=== PATIENT | female | born 1980 | race Caucasian/White ===

== ENCOUNTER 2020-11-20 08:36 | Day surgery (SDC) | payer OTHER, SELFPAY ==
[~2020-11-20] VITALS: Ht 177.8 cm; Wt 124.7 kg
[2020-11-20 08:58] LABS: HCG,QUAL RESULT NEGATIVE (NEGATIVE)
[2020-11-20] MEDS ORDERED: fentaNYL CITRATE/PF 100 MCG/2 ML AMP IVP ONE (09:45)
[2020-11-20] MEDS ORDERED: MIDAZOLAM HCL 5 MG/5 ML VIAL IVP ONE (09:45)
[2020-11-20] MEDS ORDERED: SEVOFLURANE 15 MIN GAS INH ONE (09:45)
[2020-11-20] MEDS ORDERED: LR 1,000 ML IV.SOLN IV ONE (09:45)
[2020-11-20] MEDS ORDERED: SILVER NITRATE APPLICATOR 1 STICK STICK..EA. TP ONE (09:45)
[2020-11-20] MEDS ORDERED: PROPOFOL 200MG/ 20ML VIAL (DIPRIVAN) IV ONE (09:45)
[2020-11-20] MEDS ORDERED: NS 1000 ML IV.SOLN IV ONE (09:45)
[2020-11-20] MEDS ORDERED: METOCLOPRAMIDE HCL 10 MG/2 ML VIAL IVP PRN (10:15)
[2020-11-20] MEDS ORDERED: ONDANSETRON HCL 4 MG/2 ML VIAL IVP PRN (10:15)
[2020-11-20] MEDS ORDERED: fentaNYL CITRATE/PF 100 MCG/2 ML AMP IVP PRN ×2 (10:15)
[2020-11-20] MEDS ORDERED: IBUPROFEN 800 MG TABLET PO PRN (11:15)
[2020-11-20] MEDS ORDERED: OXYCODONE/ACETAMINOPHEN 5-325 TABLET PO PRN ×2 (11:15)
[2020-11-20] MEDS ORDERED: ONDANSETRON HCL 4 MG/2 ML VIAL IM PRN (11:15)
[2020-11-20 13:33] VITALS: BP_SYST 127
== END 2020-11-20 13:30 | disposition home or self-care (01) ==
LOC: SDS 08:36 → SMU 08:37 → SDS 13:30
PROVIDERS: ATTEND Obstetrics & Gynecology
DX: N92.0 Excessive and frequent menstruation with regular cycle (principal); D25.9 Leiomyoma of uterus, unspecified; D50.9 Iron deficiency anemia, unspecified; Z79.899 Other long term (current) drug therapy; Z20.822 Contact with and (suspected) exposure to COVID-19
CPT/HCPCS: 36415; 58563; 84703; 86886; 86900; 86901; 88305; C1819; J2250; J2704; J3010; J7030; J7120; U0003

== ENCOUNTER 2021-07-01 18:03 | Inpatient (IN) | payer OTHER, SELFPAY ==
[~2021-07-01] VITALS: Ht 177.8 cm; Wt 117.9 kg
[2021-07-01 18:05] VITALS: BP_SYST 160
[2021-07-01] MEDS ORDERED: PIPERACILLIN/TAZO 3.375 GM in NS 50 ML IV ONE (18:45)
[2021-07-01] MEDS ORDERED: NACL 0.9% 1,000 ML IV ONE (18:45)
[2021-07-01] MEDS ORDERED: ONDANSETRON HCL 4 MG/2 ML VIAL IVP ONE (18:45)
[2021-07-01] MEDS ORDERED: MORPHINE 4 MG INJ. 4 MG/ML VIAL IVP ONE (18:45)
[2021-07-01] MEDS ORDERED: DIPHENHYDRAMINE INJ 50 MG/ML VIAL IVP ONE (18:45)
[2021-07-01] MEDS ORDERED: PIPERACILLIN/TAZOBACTAM 3.375 GM/VIAL (ZOSYN) IV ONE (19:06)
[2021-07-01 19:09] LABS: BILIRUBIN,URINE 1+ (NEGATIVE); BLOOD, URINE 2+ (NEGATIVE); CLARITY/URINE CLOUDY (CLEAR); COLOR,URINE YELLOW (YELLOW); GLUCOSE,URINE NEGATIVE (NEGATIVE); KETONES,URINE 1+ (NEGATIVE); LEUKOCYTE ESTERASE ,URINE TRACE (NEGATIVE); NITRITE, URINE NEGATIVE (NEGATIVE); PROTEIN URINE 2+ (NEGATIVE); UROBILINOGEN,URINE 0.2 (0.2-1.0)
[2021-07-01 19:12] LABS: CREATININE 1.08 mg/dL (0.55-1.30)
[2021-07-01 19:17] LABS: POTASSIUM 2.8 mmol/L (3.5-5.1)
[2021-07-01 19:23] LABS: TOTAL BILIRUBIN 0.7 mg/dL (0.0-1.0)
[2021-07-01 19:24] LABS: ALBUMIN 2.6 g/dL (3.4-4.8)
[2021-07-01 19:26] LABS: BASOPHILS % (AUTO) 0.3 % (0.0-2.0); EOSINOPHILS % (AUTO) 0.3 % (0.0-4.0); HEMATOCRIT 27.8 % (36-48); HEMOGLOBIN 8.5 g/dL (12.0-16.0); LYMPHOCYTES # (AUTO) 1.5 K/uL (1.0-5.5); LYMPHOCYTES % (AUTO) 9.1 % (20.5-51.5); MEAN CORPUSCULAR HEMOGLOBIN 18 pg (27-31); MEAN CORPUSCULAR HGB CONC 30 % (32-36); MEAN CORPUSCULAR VOLUME 60 fL (79.0-98.0); MONOCYTES # (AUTO) 1.4 K/uL (0.0-1.0); MONOCYTES % (AUTO) 8.7 % (1.7-9.3); NEUTROPHILS # (AUTO) 13.4 K/uL (1.8-7.7); NEUTROPHILS % (AUTO) 81.6 % (40.0-70.0); PLATELET COUNT (AUTO) 512 K/uL (130-430); RED BLOOD CELL COUNT(AUTO) 4.64 MIL/uL (4.2-6.2); RED CELL DISTRIBUTION WIDTH 18.5 % (9.0-15.0); WHITE BLOOD COUNT (AUTO) 16.4 K/uL (4.8-10.8)
[2021-07-01] MEDS ORDERED: KCL 20 mEq in 100 mL (PREMIX) 100 ML IV ONE (19:30)
[2021-07-01 19:44] LABS: BACTERIA,URINE MANY /HPF (None Seen); YEAST,URINE Few /HPF (None Seen)
[2021-07-01 19:45] LABS: HYALINE CASTS, URINE 0-10 /LPF (None Seen); MUCUS,URINE 2+ /LPF (None Seen)
[2021-07-01] MEDS ORDERED: PROPOFOL 200MG/ 20ML VIAL (DIPRIVAN) IV ONE (22:25)
[2021-07-01] MEDS ORDERED: fentaNYL CITRATE 250 MCG/5 ML AMP ONE (22:25)
[2021-07-01] MEDS ORDERED: NS IRRIG SOLN 1000 ML IR ONE (22:25)
[2021-07-01] MEDS ORDERED: MIDAZOLAM HCL 5 MG/ML VIAL (VERSED) IV ONE (22:25)
[2021-07-01] MEDS ORDERED: GLYCOPYRROLATE 0.2 MG/ML VIAL ONE (22:25)
[2021-07-01] MEDS ORDERED: BUPIVACAINE /EPINEPHRINE/PF 0.25% 30 ML VIAL INJ ONE (22:25)
[2021-07-01] MEDS ORDERED: NS 1000 ML IV.SOLN IV ONE (22:25)
[2021-07-01] MEDS ORDERED: ONDANSETRON HCL 4 MG/2 ML VIAL ONE (22:25)
[2021-07-01] MEDS ORDERED: SEVOFLURANE 15 MIN GAS INH ONE (22:25)
[2021-07-01] MEDS ORDERED: PHENYLEPHRINE HCL 10 MG/ML VIAL (NEOSYNEPHRINE) ONE (22:25)
[2021-07-01] MEDS ORDERED: METOCLOPRAMIDE HCL 10 MG/2 ML VIAL IVP PRN (23:00)
[2021-07-01] MEDS ORDERED: ONDANSETRON HCL 4 MG/2 ML VIAL IVP PRN (23:00)
[2021-07-01] MEDS ORDERED: fentaNYL CITRATE/PF 100 MCG/2 ML AMP IVP PRN (23:00)
[2021-07-01] MEDS ORDERED: NALOXONE HCL 0.4 MG/ML AMP (NARCAN) IVP PRN ×2 (23:45)
[2021-07-01] MEDS ORDERED: HYDROmorphone 1 MG/ML INJ. CARTRIDGE IM PRN (23:45)
[2021-07-01] MEDS ORDERED: ACETAMINOPHEN I.V. 1000 MG 100 ML IV ONE (23:54)
[2021-07-02] VITALS (8 sets, daily range): BP systolic 122–153
[2021-07-02] MEDS ORDERED: METOCLOPRAMIDE HCL 10 MG/2 ML VIAL IVP PRN
[2021-07-02] MEDS ORDERED: PANTOPRAZOLE SODIUM 40 MG/VIAL (PROTONIX) IVP ONE
[2021-07-02] MEDS ORDERED: ACETAMINOPHEN I.V. 1000 MG 100 ML IV ONE
[2021-07-02] MEDS ORDERED: ACETAMINOPHEN 650 MG SUPP.RECT RC PRN
[2021-07-02] MEDS ORDERED: KCL 40 mEq in 100 mL (PREMIX) 100 ML IV ONE
[2021-07-02] MEDS ORDERED: fentaNYL CITRATE/PF 100 MCG/2 ML AMP ONE (00:29)
[2021-07-02] MEDS: fentaNYL CITRATE/PF 100 MCG/2 ML AMP IVP PRN ×2 (00:30→00:35)
[2021-07-02] MEDS ORDERED: PIPERACILLIN/TAZOBACTAM 3.375 GM/VIAL (ZOSYN) IV ONE (02:14)
[2021-07-02] MEDS ORDERED: GENTAMICIN 120 mg/100 mL NS 100 ML IV ONE ×2 (02:15)
[2021-07-02] MEDS: LR 1,000 ML IV SCH ×3 (02:46→22:38)
[2021-07-02] MEDS ORDERED: PIPERACILLIN/TAZO 3.375/DEX-IS 50 ML IV SCH ×2 (03:00)
[2021-07-02] MEDS: HYDROcodone/ACETAMIN 5-325 MG TAB (NORCO/ VICODIN) PO PRN ×3 (03:49→22:37)
[2021-07-02 07:00] LABS: BASOPHILS % (AUTO) 0.3 % (0.0-2.0); EOSINOPHILS % (AUTO) 0.2 % (0.0-4.0); HEMATOCRIT 25.3 % (36-48); HEMOGLOBIN 7.6 g/dL (12.0-16.0); LYMPHOCYTES # (AUTO) 1.2 K/uL (1.0-5.5); LYMPHOCYTES % (AUTO) 10.9 % (20.5-51.5); MEAN CORPUSCULAR HEMOGLOBIN 18 pg (27-31); MEAN CORPUSCULAR HGB CONC 30 % (32-36); MEAN CORPUSCULAR VOLUME 61 fL (79.0-98.0); MONOCYTES # (AUTO) 1.3 K/uL (0.0-1.0); MONOCYTES % (AUTO) 11.3 % (1.7-9.3); NEUTROPHILS # (AUTO) 8.6 K/uL (1.8-7.7); NEUTROPHILS % (AUTO) 77.3 % (40.0-70.0); PLATELET COUNT (AUTO) 444 K/uL (130-430); RED BLOOD CELL COUNT(AUTO) 4.15 MIL/uL (4.2-6.2); WHITE BLOOD COUNT (AUTO) 11.1 K/uL (4.8-10.8)
[2021-07-02 07:01] LABS: TOTAL IRON BIND. CAPACITY 196 ug/dL (250-450)
[2021-07-02 07:15] LABS: ALBUMIN 2.1 g/dL (3.4-4.8); CALCIUM 7.4 mg/dL (8.4-11.0); CREATININE 1.04 mg/dL (0.55-1.30); POTASSIUM 3.7 mmol/L (3.5-5.1); TOTAL BILIRUBIN 0.7 mg/dL (0.0-1.0)
[2021-07-02 08:13] LABS: RED CELL DISTRIBUTION WIDTH 18.3 % (9.0-15.0)
[2021-07-02] MEDS: PANTOPRAZOLE SODIUM 40 MG/VIAL (PROTONIX) IVP SCH ×2 (09:47→20:52)
[2021-07-02] MEDS: LACTOBACILLUS RHAMNOSUS GG 1 CAP CAPSULE PO SCH ×2 (09:47→20:53)
[2021-07-02] MEDS: POTASSIUM CHLORIDE 20 MEQ TAB.PRT.SR PO SCH (09:48)
[2021-07-02] MEDS: PIPERACILLIN/TAZO 3.375/DEX-IS 50 ML IV SCH ×3 (09:49→22:22)
[2021-07-02] MEDS ORDERED: HYDROmorphone 1 MG/ML INJ. CARTRIDGE IVP PRN (13:00)
[2021-07-02] MEDS: ONDANSETRON HCL 4 MG/2 ML VIAL IVP PRN (18:20)
[2021-07-02] MEDS: FLUCONAZOLE 200 mg/ NS 100 ML IV SCH (20:25)
[2021-07-02] MEDS: SOD FERRIC GLUC COMPLEX/SUC 125 MG in NS 100 ML IV SCH (21:03)
[2021-07-03 01:24] VITALS: BP_SYST 139
[2021-07-03] MEDS: PIPERACILLIN/TAZO 3.375/DEX-IS 50 ML IV SCH ×4 (03:15→20:34)
[2021-07-03] MEDS: LR 1,000 ML IV SCH ×3 (03:18→15:45)
[2021-07-03 07:04] LABS: BASOPHILS % (AUTO) 0.3 % (0.0-2.0); EOSINOPHILS # (AUTO) 0.1 K/uL (0.0-0.4); EOSINOPHILS % (AUTO) 0.9 % (0.0-4.0); HEMATOCRIT 27.7 % (36-48); HEMOGLOBIN 8.2 g/dL (12.0-16.0); LYMPHOCYTES # (AUTO) 1.4 K/uL (1.0-5.5); MEAN CORPUSCULAR HEMOGLOBIN 18 pg (27-31); MEAN CORPUSCULAR HGB CONC 30 % (32-36); MEAN CORPUSCULAR VOLUME 61 fL (79.0-98.0); MONOCYTES # (AUTO) 1.3 K/uL (0.0-1.0); MONOCYTES % (AUTO) 11.5 % (1.7-9.3); NEUTROPHILS # (AUTO) 8.7 K/uL (1.8-7.7); NEUTROPHILS % (AUTO) 75.3 % (40.0-70.0); PLATELET COUNT (AUTO) 528 K/uL (130-430); RED BLOOD CELL COUNT(AUTO) 4.51 MIL/uL (4.2-6.2); RED CELL DISTRIBUTION WIDTH 18.7 % (9.0-15.0); RETICULOCYTE COUNT 0.7 % (0.5-1.5); WHITE BLOOD COUNT (AUTO) 11.5 K/uL (4.8-10.8)
[2021-07-03 07:55] LABS: CALCIUM 7.5 mg/dL (8.4-11.0); CREATININE 0.99 mg/dL (0.55-1.30); POTASSIUM 3.7 mmol/L (3.5-5.1)
[2021-07-03 08:06] LABS: FOLATE (FOLIC ACID) 5.7 ng/mL (>3.0)
[2021-07-03 08:09] VITALS: BP_SYST 141
[2021-07-03] MEDS: LACTOBACILLUS RHAMNOSUS GG 1 CAP CAPSULE PO SCH ×2 (09:50→20:33)
[2021-07-03] MEDS: PANTOPRAZOLE SODIUM 40 MG/VIAL (PROTONIX) IVP SCH ×2 (09:54→20:33)
[2021-07-03] MEDS: POTASSIUM CHLORIDE 20 MEQ TAB.PRT.SR PO SCH (09:54)
[2021-07-03] MEDS: ONDANSETRON HCL 4 MG/2 ML VIAL IVP PRN (15:04)
[2021-07-03 16:15] VITALS: BP_SYST 152
[2021-07-03] MEDS: FLUCONAZOLE 200 mg/ NS 100 ML IV SCH (18:56)
[2021-07-03] MEDS: SOD FERRIC GLUC COMPLEX/SUC 125 MG in NS 100 ML IV SCH (20:30)
[2021-07-03 22:11] VITALS: BP_SYST 140
[2021-07-04] MEDS: PIPERACILLIN/TAZO 3.375/DEX-IS 50 ML IV SCH ×4 (03:29→21:48)
[2021-07-04 05:14] VITALS: BP_SYST 140
[2021-07-04] MEDS: LR 1,000 ML IV SCH ×2 (05:18→16:16)
[2021-07-04 08:11] LABS: ALBUMIN 1.7 g/dL (3.4-4.8); BASOPHILS % (AUTO) 0.4 % (0.0-2.0); CALCIUM 7.6 mg/dL (8.4-11.0); CREATININE 0.72 mg/dL (0.55-1.30); EOSINOPHILS # (AUTO) 0.3 K/uL (0.0-0.4); EOSINOPHILS % (AUTO) 2.2 % (0.0-4.0); HEMATOCRIT 24.9 % (36-48); HEMOGLOBIN 7.4 g/dL (12.0-16.0); LYMPHOCYTES # (AUTO) 1.9 K/uL (1.0-5.5); LYMPHOCYTES % (AUTO) 15.9 % (20.5-51.5); MEAN CORPUSCULAR HEMOGLOBIN 18 pg (27-31); MEAN CORPUSCULAR HGB CONC 30 % (32-36); MEAN CORPUSCULAR VOLUME 62 fL (79.0-98.0); MONOCYTES # (AUTO) 1.2 K/uL (0.0-1.0); MONOCYTES % (AUTO) 10.6 % (1.7-9.3); NEUTROPHILS # (AUTO) 8.3 K/uL (1.8-7.7); NEUTROPHILS % (AUTO) 70.9 % (40.0-70.0); PLATELET COUNT (AUTO) 519 K/uL (130-430); POTASSIUM 3.9 mmol/L (3.5-5.1); RED BLOOD CELL COUNT(AUTO) 4.04 MIL/uL (4.2-6.2); RED CELL DISTRIBUTION WIDTH 18.4 % (9.0-15.0); TOTAL BILIRUBIN 0.5 mg/dL (0.0-1.0); WHITE BLOOD COUNT (AUTO) 11.7 K/uL (4.8-10.8)
[2021-07-04] MEDS: PANTOPRAZOLE SODIUM 40 MG/VIAL (PROTONIX) IVP SCH ×2 (08:58→21:48)
[2021-07-04] MEDS: LACTOBACILLUS RHAMNOSUS GG 1 CAP CAPSULE PO SCH ×2 (08:58→21:49)
[2021-07-04] MEDS: POTASSIUM CHLORIDE 20 MEQ TAB.PRT.SR PO SCH (08:58)
[2021-07-04 10:02] VITALS: BP_SYST 154
[2021-07-04 12:00] VITALS: BP_SYST 136
[2021-07-04] MEDS: ACETAMINOPHEN 325 MG TABLET PO PRN ×2 (12:18→18:52)
[2021-07-04] MEDS: ONDANSETRON HCL 4 MG/2 ML VIAL IVP PRN (13:35)
[2021-07-04 14:08] LABS: BASOPHILS # (AUTO) 0.1 K/uL (0.0-0.2); BASOPHILS % (AUTO) 0.9 % (0.0-2.0); EOSINOPHILS # (AUTO) 0.2 K/uL (0.0-0.4); EOSINOPHILS % (AUTO) 1.7 % (0.0-4.0); HEMATOCRIT 25.4 % (36-48); HEMOGLOBIN 7.7 g/dL (12.0-16.0); LYMPHOCYTES # (AUTO) 1.7 K/uL (1.0-5.5); LYMPHOCYTES % (AUTO) 14.8 % (20.5-51.5); MEAN CORPUSCULAR HEMOGLOBIN 18 pg (27-31); MEAN CORPUSCULAR HGB CONC 30 % (32-36); MEAN CORPUSCULAR VOLUME 60 fL (79.0-98.0); MONOCYTES # (AUTO) 1.2 K/uL (0.0-1.0); MONOCYTES % (AUTO) 9.9 % (1.7-9.3); NEUTROPHILS # (AUTO) 8.5 K/uL (1.8-7.7); NEUTROPHILS % (AUTO) 72.7 % (40.0-70.0); PLATELET COUNT (AUTO) 573 K/uL (130-430); RED BLOOD CELL COUNT(AUTO) 4.21 MIL/uL (4.2-6.2); RED CELL DISTRIBUTION WIDTH 18.1 % (9.0-15.0); WHITE BLOOD COUNT (AUTO) 11.7 K/uL (4.8-10.8)
[2021-07-04 14:16] LABS: CALCIUM 7.8 mg/dL (8.4-11.0); CREATININE 0.7 mg/dL (0.55-1.30); POTASSIUM 3.6 mmol/L (3.5-5.1)
[2021-07-04 16:00] VITALS: BP_SYST 144
[2021-07-04] MEDS: FLUCONAZOLE 200 mg/ NS 100 ML IV SCH (17:31)
[2021-07-04] MEDS ORDERED: EPOETIN ALFA-EPBX 4,000 UNITS/ML VIAL SUBCUT ONE (18:00)
[2021-07-04] MEDS: SOD FERRIC GLUC COMPLEX/SUC 125 MG in NS 100 ML IV SCH (18:43)
[2021-07-04] MEDS: MULTIVITS,CA,MINERALS/IRON/FA 1 TABLET PO SCH (21:49)
[2021-07-04 23:12] VITALS: BP_SYST 153
[2021-07-05] MEDS: PIPERACILLIN/TAZO 3.375/DEX-IS 50 ML IV SCH ×4 (03:01→21:48)
[2021-07-05] MEDS: LR 1,000 ML IV SCH (05:52)
[2021-07-05 06:33] LABS: CALCIUM 7.6 mg/dL (8.4-11.0); CREATININE 0.71 mg/dL (0.55-1.30); POTASSIUM 3.7 mmol/L (3.5-5.1)
[2021-07-05 06:40] VITALS: BP_SYST 147
[2021-07-05 08:00] VITALS: BP_SYST 158
[2021-07-05 08:54] LABS: BASOPHILS # (AUTO) 0.1 K/uL (0.0-0.2); BASOPHILS % (AUTO) 0.6 % (0.0-2.0); EOSINOPHILS # (AUTO) 0.4 K/uL (0.0-0.4); EOSINOPHILS % (AUTO) 3.7 % (0.0-4.0); HEMATOCRIT 22.7 % (36-48); LYMPHOCYTES # (AUTO) 1.8 K/uL (1.0-5.5); LYMPHOCYTES % (AUTO) 15.5 % (20.5-51.5); MEAN CORPUSCULAR HEMOGLOBIN 18 pg (27-31); MEAN CORPUSCULAR HGB CONC 30 % (32-36); MEAN CORPUSCULAR VOLUME 61 fL (79.0-98.0); MONOCYTES # (AUTO) 1.3 K/uL (0.0-1.0); MONOCYTES % (AUTO) 11.8 % (1.7-9.3); NEUTROPHILS # (AUTO) 7.8 K/uL (1.8-7.7); NEUTROPHILS % (AUTO) 68.4 % (40.0-70.0); PLATELET COUNT (AUTO) 534 K/uL (130-430); RED BLOOD CELL COUNT(AUTO) 3.75 MIL/uL (4.2-6.2); RED CELL DISTRIBUTION WIDTH 18.3 % (9.0-15.0); WHITE BLOOD COUNT (AUTO) 11.4 K/uL (4.8-10.8)
[2021-07-05 09:25] LABS: HEMOGLOBIN 6.9 g/dL (12.0-16.0)
[2021-07-05] MEDS: MULTIVITS,CA,MINERALS/IRON/FA 1 TABLET PO SCH ×2 (09:37→21:48)
[2021-07-05] MEDS: POTASSIUM CHLORIDE 20 MEQ TAB.PRT.SR PO SCH (09:37)
[2021-07-05] MEDS: LACTOBACILLUS RHAMNOSUS GG 1 CAP CAPSULE PO SCH ×2 (09:37→21:48)
[2021-07-05] MEDS: PANTOPRAZOLE SODIUM 40 MG/VIAL (PROTONIX) IVP SCH ×2 (09:37→21:48)
[2021-07-05 10:11] LABS: BASOPHILS # (AUTO) 0.1 K/uL (0.0-0.2); BASOPHILS % (AUTO) 0.6 % (0.0-2.0); EOSINOPHILS # (AUTO) 0.3 K/uL (0.0-0.4); EOSINOPHILS % (AUTO) 2.6 % (0.0-4.0); HEMATOCRIT 23.8 % (36-48); HEMOGLOBIN 7.2 g/dL (12.0-16.0); LYMPHOCYTES # (AUTO) 1.6 K/uL (1.0-5.5); LYMPHOCYTES % (AUTO) 14.3 % (20.5-51.5); MEAN CORPUSCULAR HEMOGLOBIN 18 pg (27-31); MEAN CORPUSCULAR HGB CONC 30 % (32-36); MEAN CORPUSCULAR VOLUME 61 fL (79.0-98.0); MONOCYTES # (AUTO) 1.1 K/uL (0.0-1.0); MONOCYTES % (AUTO) 9.9 % (1.7-9.3); NEUTROPHILS # (AUTO) 8.2 K/uL (1.8-7.7); NEUTROPHILS % (AUTO) 72.6 % (40.0-70.0); PLATELET COUNT (AUTO) 577 K/uL (130-430); RED CELL DISTRIBUTION WIDTH 18.4 % (9.0-15.0); WHITE BLOOD COUNT (AUTO) 11.3 K/uL (4.8-10.8)
[2021-07-05 12:00] VITALS: BP_SYST 162
[2021-07-05] MEDS ORDERED: EPOETIN ALFA-EPBX 4,000 UNITS/ML VIAL SUBCUT ONE (12:00)
[2021-07-05] MEDS: FLUCONAZOLE 200 mg/ NS 100 ML IV SCH (18:10)
[2021-07-05] MEDS: SOD FERRIC GLUC COMPLEX/SUC 125 MG in NS 100 ML IV SCH (20:26)
[2021-07-06 00:48] VITALS: BP_SYST 149
[2021-07-06] MEDS: PIPERACILLIN/TAZO 3.375/DEX-IS 50 ML IV SCH ×3 (03:12→16:10)
[2021-07-06 08:21] LABS: BASOPHILS # (AUTO) 0.1 K/uL (0.0-0.2); BASOPHILS % (AUTO) 0.5 % (0.0-2.0); EOSINOPHILS # (AUTO) 0.4 K/uL (0.0-0.4); EOSINOPHILS % (AUTO) 3.6 % (0.0-4.0); HEMATOCRIT 23.4 % (36-48); LYMPHOCYTES # (AUTO) 1.8 K/uL (1.0-5.5); LYMPHOCYTES % (AUTO) 14.9 % (20.5-51.5); MEAN CORPUSCULAR HEMOGLOBIN 18 pg (27-31); MEAN CORPUSCULAR HGB CONC 30 % (32-36); MEAN CORPUSCULAR VOLUME 61 fL (79.0-98.0); MONOCYTES # (AUTO) 1.3 K/uL (0.0-1.0); MONOCYTES % (AUTO) 11.1 % (1.7-9.3); NEUTROPHILS # (AUTO) 8.3 K/uL (1.8-7.7); NEUTROPHILS % (AUTO) 69.9 % (40.0-70.0); PLATELET COUNT (AUTO) 614 K/uL (130-430); RED BLOOD CELL COUNT(AUTO) 3.82 MIL/uL (4.2-6.2)
[2021-07-06 08:31] LABS: ALBUMIN 1.9 g/dL (3.4-4.8); CALCIUM 7.8 mg/dL (8.4-11.0); CREATININE 0.76 mg/dL (0.55-1.30); POTASSIUM 3.5 mmol/L (3.5-5.1); TOTAL BILIRUBIN 0.4 mg/dL (0.0-1.0)
[2021-07-06] MEDS: PANTOPRAZOLE SODIUM 40 MG/VIAL (PROTONIX) IVP SCH (09:23)
[2021-07-06] MEDS: LACTOBACILLUS RHAMNOSUS GG 1 CAP CAPSULE PO SCH (09:23)
[2021-07-06] MEDS: MULTIVITS,CA,MINERALS/IRON/FA 1 TABLET PO SCH (09:24)
[2021-07-06] MEDS: POTASSIUM CHLORIDE 20 MEQ TAB.PRT.SR PO SCH (09:24)
[2021-07-06] MEDS ORDERED: EPOETIN ALFA-EPBX 4,000 UNITS/ML VIAL SUBCUT ONE (11:00)
[2021-07-06] MEDS ORDERED: LEVO500T90 PO (13:52)
[2021-07-06] MEDS ORDERED: METR-154 PO (13:54)
[2021-07-06] MEDS ORDERED: LACT1CAP69 PO (14:27)
[2021-07-06] MEDS ORDERED: MULT-1117 PO (14:28)
[2021-07-06] MEDS ORDERED: FER300L PO (14:29)
[2021-07-06] MEDS ORDERED: VITD2000 PO (14:30)
[2021-07-06 16:00] VITALS: BP_SYST 142
[2021-07-06] MEDS: FLUCONAZOLE 200 mg/ NS 100 ML IV SCH (16:13)
== END 2021-07-06 18:12 | disposition home health service (06) | DRG 853 ==
LOC: SED 18:03 → SDS 22:14 → SMU 22:15 → STU 07-02 01:45 → SMU 07-04 17:17
PROVIDERS: ADMIT Surgery; ATTEND Internal Medicine
PROC: 0WJG4ZZ Inspection of Peritoneal Cavity, Percutaneous Endoscopic Approach (ICD-10-PCS; 2021-07-01)
PROC: 30233N1 Transfusion of Nonautologous Red Blood Cells into Peripheral Vein, Percutaneous Approach (ICD-10-PCS; principal; 2021-07-06)
DX: A41.9 Sepsis, unspecified organism (principal); K35.33 Acute appendicitis with perforation, localized peritonitis, and gangrene, with abscess; E44.0 Moderate protein-calorie malnutrition; N39.0 Urinary tract infection, site not specified; E87.6 Hypokalemia; D25.9 Leiomyoma of uterus, unspecified; D50.0 Iron deficiency anemia secondary to blood loss (chronic); E66.01 Morbid (severe) obesity due to excess calories; Z20.822 Contact with and (suspected) exposure to COVID-19; Z68.37 Body mass index [BMI] 37.0-37.9, adult
CPT/HCPCS: 36415; 76376; 80048; 80053; 81000; 82607; 82746; 83540; 83550; 83605; 83735; 85025; 85044; 86886; 86900; 86901; 86920; 87040; 87081; 87086; 93005; 94010; 94760; 96365; 96375; 99285; C1727; C9113; G0378; J0131; J1170; J1200; J1450; J1580; J2250; J2270; J2370; J2405; J2543; J2704; J2916; J3010; J3480; J3490; J7030; P9021; Q5106

== ENCOUNTER 2021-07-17 18:18 | Inpatient (IN) | payer OTHER, SELFPAY ==
[~2021-07-17] VITALS: Ht 177.8 cm; Wt 113.4 kg
[~2021-07-17 18:18] MED LIST: FER300L PO; LACT1CAP69 PO; LEVO500T90 PO; METR-154 PO; MULT-1117 PO; VITD2000 PO
[2021-07-17 18:59] VITALS: BP_SYST 126
[2021-07-17 20:00] LABS: BILIRUBIN,URINE NEGATIVE (NEGATIVE); BLOOD, URINE 1+ (NEGATIVE); CLARITY/URINE CLEAR (CLEAR); COLOR,URINE YELLOW (YELLOW); GLUCOSE,URINE NEGATIVE (NEGATIVE); KETONES,URINE NEGATIVE (NEGATIVE); LEUKOCYTE ESTERASE ,URINE NEGATIVE (NEGATIVE); NITRITE, URINE NEGATIVE (NEGATIVE); PH,URINE 5.5 (5.0-8.0); PROTEIN URINE NEGATIVE (NEGATIVE); UROBILINOGEN,URINE 0.2 (0.2-1.0)
[2021-07-17 20:15] LABS: BACTERIA,URINE FEW /HPF (None Seen); MUCUS,URINE 1+ /LPF (None Seen); RBC,URINE 0-3 /HPF (0-3); WBC,URINE 0-3 /HPF (0-3)
[2021-07-17 20:42] LABS: BASOPHILS # (AUTO) 0.1 K/uL (0.0-0.2); EOSINOPHILS # (AUTO) 0.1 K/uL (0.0-0.4); LYMPHOCYTES % (AUTO) 16.5 % (20.5-51.5); MONOCYTES # (AUTO) 1.2 K/uL (0.0-1.0)
[2021-07-17] MEDS ORDERED: metroNIDAZOLE 500 MG TABLET PO ONE (20:45)
[2021-07-17] MEDS ORDERED: NS 1000 ML IV.SOLN IV ONE (20:45)
[2021-07-17] MEDS ORDERED: CEFEPIME 2 GM in D5W 100 ML IV ONE (20:45)
[2021-07-17 20:53] LABS: MEAN CORPUSCULAR HGB CONC 32 % (32-36)
[2021-07-17 21:00] LABS: CALCIUM 9.7 mg/dL (8.4-11.0); CREATININE 0.95 mg/dL (0.55-1.30); POTASSIUM 3.6 mmol/L (3.5-5.1)
[2021-07-17] MEDS ORDERED: CEFEPIME 1 GM/VIAL (MAXIPIME) ONE (21:01)
[2021-07-17 21:06] LABS: ALBUMIN 2.3 g/dL (3.4-4.8)
[2021-07-17 21:10] LABS: HEMATOCRIT 31.3 % (36-48); MEAN CORPUSCULAR HEMOGLOBIN 21 pg (27-31); MEAN CORPUSCULAR VOLUME 64 fL (79.0-98.0); RED BLOOD CELL COUNT(AUTO) 4.86 MIL/uL (4.2-6.2); RED CELL DISTRIBUTION WIDTH 23.7 % (9.0-15.0); WHITE BLOOD COUNT (AUTO) 10.5 K/uL (4.8-10.8)
[2021-07-17 21:11] LABS: BASOPHILS % (AUTO) 1.1 % (0.0-2.0); EOSINOPHILS % (AUTO) 0.6 % (0.0-4.0); LYMPHOCYTES # (AUTO) 1.7 K/uL (1.0-5.5); MONOCYTES % (AUTO) 11.2 % (1.7-9.3); NEUTROPHILS # (AUTO) 7.4 K/uL (1.8-7.7); NEUTROPHILS % (AUTO) 70.6 % (40.0-70.0); PLATELET COUNT (AUTO) 654 K/uL (130-430)
[2021-07-17] MEDS ORDERED: metroNIDAZOLE 500 mg/NS 100 ML IV SCH (22:00)
[2021-07-17] MEDS ORDERED: D5/0.45 NS 1,000 ML IV SCH (22:00)
[2021-07-17 22:32] LABS: INR 1.2 (0.8-1.2); PROTHROMBIN TIME 12.3 SECS (9.5-12.5)
[2021-07-18] VITALS (7 sets, daily range): BP systolic 138–160
[2021-07-18] MEDS: metroNIDAZOLE 500 mg/NS 100 ML IV SCH ×4 (00:10→21:34)
[2021-07-18] MEDS: D5/0.45 NS 1,000 ML IV SCH ×2 (01:03→21:34)
[2021-07-18] MEDS ORDERED: metroNIDAZOLE 500 mg/NS 100 ML IV ONE (05:56)
[2021-07-18 07:12] LABS: BASOPHILS # (AUTO) 0.1 K/uL (0.0-0.2); BASOPHILS % (AUTO) 0.6 % (0.0-2.0); EOSINOPHILS # (AUTO) 0.1 K/uL (0.0-0.4); HEMATOCRIT 31.7 % (36-48); HEMOGLOBIN 9.7 g/dL (12.0-16.0); LYMPHOCYTES # (AUTO) 1.5 K/uL (1.0-5.5); LYMPHOCYTES % (AUTO) 17.7 % (20.5-51.5); MEAN CORPUSCULAR HEMOGLOBIN 20 pg (27-31); MEAN CORPUSCULAR HGB CONC 31 % (32-36); MEAN CORPUSCULAR VOLUME 65 fL (79.0-98.0); MONOCYTES # (AUTO) 1.2 K/uL (0.0-1.0); MONOCYTES % (AUTO) 14.4 % (1.7-9.3); NEUTROPHILS # (AUTO) 5.7 K/uL (1.8-7.7); NEUTROPHILS % (AUTO) 66.3 % (40.0-70.0); PLATELET COUNT (AUTO) 605 K/uL (130-430); RED BLOOD CELL COUNT(AUTO) 4.88 MIL/uL (4.2-6.2); RED CELL DISTRIBUTION WIDTH 24.8 % (9.0-15.0); WHITE BLOOD COUNT (AUTO) 8.6 K/uL (4.8-10.8)
[2021-07-18 09:00] LABS: ALBUMIN 2.2 g/dL (3.4-4.8); CALCIUM 8.4 mg/dL (8.4-11.0); CREATININE 0.88 mg/dL (0.55-1.30); POTASSIUM 3.6 mmol/L (3.5-5.1); TOTAL BILIRUBIN 0.7 mg/dL (0.0-1.0)
[2021-07-18] MEDS ORDERED: CEFEPIME 1 GM in D5W 50 ML IV SCH ×2 (09:00)
[2021-07-18] MEDS: PIPERACILLIN/TAZO 4.5GM/DEX-IS 100 ML IV SCH ×2 (13:54→21:35)
[2021-07-19 00:30] VITALS: BP_SYST 148
[2021-07-19] MEDS: metroNIDAZOLE 500 mg/NS 100 ML IV SCH ×3 (05:16→22:26)
[2021-07-19] MEDS: PIPERACILLIN/TAZO 4.5GM/DEX-IS 100 ML IV SCH ×3 (05:52→21:17)
[2021-07-19 08:00] VITALS: BP_SYST 134
[2021-07-19 09:24] LABS: BASOPHILS # (AUTO) 0.1 K/uL (0.0-0.2); BASOPHILS % (AUTO) 0.9 % (0.0-2.0); EOSINOPHILS # (AUTO) 0.1 K/uL (0.0-0.4); HEMATOCRIT 29.4 % (36-48); LYMPHOCYTES # (AUTO) 1.3 K/uL (1.0-5.5); LYMPHOCYTES % (AUTO) 13.9 % (20.5-51.5); MEAN CORPUSCULAR HEMOGLOBIN 20 pg (27-31); MEAN CORPUSCULAR HGB CONC 31 % (32-36); MEAN CORPUSCULAR VOLUME 65 fL (79.0-98.0); MONOCYTES % (AUTO) 10.5 % (1.7-9.3); PLATELET COUNT (AUTO) 548 K/uL (130-430); RED BLOOD CELL COUNT(AUTO) 4.56 MIL/uL (4.2-6.2); RED CELL DISTRIBUTION WIDTH 24.5 % (9.0-15.0); WHITE BLOOD COUNT (AUTO) 9.5 K/uL (4.8-10.8)
[2021-07-19 10:58] LABS: NEUTROPHILS % (AUTO) 73.7 % (40.0-70.0)
[2021-07-19 12:15] VITALS: BP_SYST 128
[2021-07-19 13:52] LABS: INR 1.4 (0.8-1.2); PROTHROMBIN TIME 13.8 SECS (9.5-12.5)
[2021-07-19 16:45] VITALS: BP_SYST 124
[2021-07-19 16:50] LABS: INR 1.3 (0.8-1.2); PROTHROMBIN TIME 12.9 SECS (9.5-12.5)
[2021-07-19] MEDS: D5/0.45 NS 1,000 ML IV SCH (17:26)
[2021-07-19 18:35] VITALS: BP_SYST 128
[2021-07-19] MEDS ORDERED: PIPE3.379 IV (18:52)
[2021-07-20 00:28] VITALS: BP_SYST 159
[2021-07-20 02:12] VITALS: BP_SYST 159
[2021-07-20] MEDS: PIPERACILLIN/TAZO 4.5GM/DEX-IS 100 ML IV SCH ×3 (05:26→20:20)
[2021-07-20] MEDS: metroNIDAZOLE 500 mg/NS 100 ML IV SCH ×3 (06:44→20:17)
[2021-07-20 07:28] LABS: BASOPHILS # (AUTO) 0.1 K/uL (0.0-0.2); BASOPHILS % (AUTO) 0.8 % (0.0-2.0); EOSINOPHILS # (AUTO) 0.2 K/uL (0.0-0.4); EOSINOPHILS % (AUTO) 3.3 % (0.0-4.0); HEMATOCRIT 28.8 % (36-48); LYMPHOCYTES # (AUTO) 1.5 K/uL (1.0-5.5); LYMPHOCYTES % (AUTO) 22.7 % (20.5-51.5); MEAN CORPUSCULAR HEMOGLOBIN 20 pg (27-31); MEAN CORPUSCULAR HGB CONC 31 % (32-36); MEAN CORPUSCULAR VOLUME 65 fL (79.0-98.0); MONOCYTES # (AUTO) 0.7 K/uL (0.0-1.0); MONOCYTES % (AUTO) 10.7 % (1.7-9.3); NEUTROPHILS # (AUTO) 4.1 K/uL (1.8-7.7); NEUTROPHILS % (AUTO) 62.5 % (40.0-70.0); PLATELET COUNT (AUTO) 505 K/uL (130-430); RED BLOOD CELL COUNT(AUTO) 4.46 MIL/uL (4.2-6.2); RED CELL DISTRIBUTION WIDTH 24.2 % (9.0-15.0); WHITE BLOOD COUNT (AUTO) 6.6 K/uL (4.8-10.8)
[2021-07-20 08:00] VITALS: BP_SYST 137
[2021-07-20 09:28] LABS: CALCIUM 8.6 mg/dL (8.4-11.0); CREATININE 0.58 mg/dL (0.55-1.30); POTASSIUM 3.2 mmol/L (3.5-5.1)
[2021-07-20] MEDS: D5/0.45 NS 1,000 ML IV SCH (10:15)
[2021-07-20 12:00] VITALS: BP_SYST 148
[2021-07-20 16:00] VITALS: BP_SYST 147
[2021-07-20 22:24] VITALS: BP_SYST 155
== END 2021-07-20 23:12 | disposition home health service (06) | DRG 862 ==
LOC: SED 18:18 → SMU 22:02
PROVIDERS: ADMIT Internal Medicine; ATTEND Internal Medicine
DX: T81.40XA Infection following a procedure, unspecified, initial encounter (principal); A41.9 Sepsis, unspecified organism; N39.0 Urinary tract infection, site not specified; E66.01 Morbid (severe) obesity due to excess calories; K80.20 Calculus of gallbladder without cholecystitis without obstruction; Y83.8 Other surgical procedures as the cause of abnormal reaction of the patient, or of later complication, without mention of misadventure at the time of the procedure; L73.2 Hidradenitis suppurativa; Z20.822 Contact with and (suspected) exposure to COVID-19; Z90.49 Acquired absence of other specified parts of digestive tract; Z79.2 Long term (current) use of antibiotics; Z79.899 Other long term (current) drug therapy; Z68.35 Body mass index [BMI] 35.0-35.9, adult; Y92.89 Other specified places as the place of occurrence of the external cause
CPT/HCPCS: 36415; 71045; 76376; 80048; 80053; 81000; 83605; 84484; 85025; 85610-TC; 85730-TC; 87040; 87081; 87086; 93005; 94010; 94760; 96374; 99285; J0692; J2543; J3490; J7060

== ENCOUNTER 2021-08-08 11:36 | Inpatient (IN) | payer OTHER, SELFPAY ==
[~2021-08-08] VITALS: Ht 177.8 cm; Wt 106.6 kg
[~2021-08-08 11:36] MED LIST changes: -LEVO500T90 PO; -METR-154 PO; +PIPE3.379 IV
[2021-08-08 11:45] VITALS: BP_SYST 140
[2021-08-08] MEDS ORDERED: NS 1000 ML IV.SOLN IV ONE (12:00)
[2021-08-08] MEDS ORDERED: KETOROLAC TROMETHAMINE 30 MG VIAL IVP ONE (12:00)
[2021-08-08] MEDS ORDERED: CEFEPIME 2 GM in D5W 100 ML IV ONE (12:30)
[2021-08-08] MEDS ORDERED: metroNIDAZOLE 500 mg/NS 100 ML IV ONE (12:30)
[2021-08-08] MEDS ORDERED: LOSA25TA3 PO (12:48)
[2021-08-08 13:11] LABS: BASOPHILS # (AUTO) 0.1 K/uL (0.0-0.2); BASOPHILS % (AUTO) 0.7 % (0.0-2.0); HEMATOCRIT 33.7 % (36-48); HEMOGLOBIN 10.6 g/dL (12.0-16.0); LYMPHOCYTES # (AUTO) 1.3 K/uL (1.0-5.5); LYMPHOCYTES % (AUTO) 9.3 % (20.5-51.5); MEAN CORPUSCULAR HEMOGLOBIN 22 pg (27-31); MEAN CORPUSCULAR HGB CONC 31 % (32-36); MEAN CORPUSCULAR VOLUME 69 fL (79.0-98.0); MONOCYTES # (AUTO) 1.1 K/uL (0.0-1.0); MONOCYTES % (AUTO) 7.9 % (1.7-9.3); NEUTROPHILS # (AUTO) 11.2 K/uL (1.8-7.7); NEUTROPHILS % (AUTO) 82.1 % (40.0-70.0); PLATELET COUNT (AUTO) 462 K/uL (130-430); RED BLOOD CELL COUNT(AUTO) 4.86 MIL/uL (4.2-6.2); RED CELL DISTRIBUTION WIDTH 28.8 % (9.0-15.0); WHITE BLOOD COUNT (AUTO) 13.6 K/uL (4.8-10.8)
[2021-08-08] MEDS ORDERED: DIATR MEGLU/DIATRIZ SOD 30 ML SOLUTION PO ONE (13:16)
[2021-08-08 13:30] LABS: ANION GAP 12 (5-15); CALCIUM 9.1 mg/dL (8.4-11.0); CHLORIDE 96 mmol/L (98-107); CREATININE 0.92 mg/dL (0.55-1.30); GLUCOSE 156 mg/dL (70-99); POTASSIUM 3.1 mmol/L (3.5-5.1); SODIUM SERUM 135 mmol/L (136-145); UREA NITROGEN, BLOOD 14 mg/dL (8-21)
[2021-08-08 13:33] LABS: PROTHROMBIN TIME 10.9 SECS (9.5-12.5)
[2021-08-08 13:35] LABS: GFR AFRICAN AMERICAN 86 mL/min (>90)
[2021-08-08 13:39] LABS: ALANINE AMINOTRANSFERASE 22 U/L (12-78); ALBUMIN 2.6 g/dL (3.4-4.8); ASPARTATE AMINOTRANSFERASE 37 U/L (10-37); TOTAL BILIRUBIN 0.7 mg/dL (0.0-1.0)
[2021-08-08] MEDS ORDERED: CEFEPIME 1 GM/VIAL (MAXIPIME) ONE (14:00)
[2021-08-08 14:03] LABS: ERYTHROCYTE SEDIMENTATION RATE 59 MM/HR (0-20)
[2021-08-08 14:15] LABS: C-REACTIVE PROTEIN QUANT 27.8 mg/dL (0-0.5)
[2021-08-08 17:36] VITALS: BP_SYST 163
[2021-08-08] MEDS: D5LR 1,000 ML IV SCH (17:45)
[2021-08-08] MEDS ORDERED: ONDANSETRON HCL 4 MG/2 ML VIAL IVP PRN ×2 (17:45→18:00)
[2021-08-08] MEDS ORDERED: POTASSIUM CHLORIDE 40 MEQ, LIDOCAINE JECT 2% PF 100 MG 50 MG in NS 250 ML IV ONE (17:45)
[2021-08-08] MEDS ORDERED: NACL 0.9% 1,000 ML IV ONE (18:00)
[2021-08-08] MEDS ORDERED: KETOROLAC TROMETHAMINE 15 MG VIAL IVP PRN (18:00)
[2021-08-08] MEDS ORDERED: cloNIDine HCL 0.1 MG TABLET PO PRN (18:00)
[2021-08-08] MEDS ORDERED: MORPHINE 4 MG INJ. 4 MG/ML VIAL IVP PRN (18:00)
[2021-08-08] MEDS ORDERED: FLUCONAZOLE 200 mg/ NS 100 ML IV SCH (18:45)
[2021-08-08] MEDS ORDERED: LOSARTAN POTASSIUM 25 MG TABLET PO ONE (20:15)
[2021-08-08] MEDS: ACETAMINOPHEN 325 MG TABLET PO PRN (20:28)
[2021-08-08] MEDS ORDERED: CEFEPIME 0.5 GM in D5W 50 ML IV SCH (21:00)
[2021-08-08] MEDS ORDERED: CEFEPIME 1 GM in D5W 50 ML IV SCH (21:00)
[2021-08-08] MEDS: metroNIDAZOLE 500 mg/NS 100 ML IV SCH (21:11)
[2021-08-08] MEDS: MEROPENEM 1 GM in NS 100 ML IV SCH (21:11)
[2021-08-08 21:54] VITALS: BP_SYST 134
[2021-08-08 22:35] VITALS: BP_SYST 134
[2021-08-09 01:22] VITALS: BP_SYST 132
[2021-08-09] MEDS: D5LR 1,000 ML IV SCH ×2 (03:08→11:30)
[2021-08-09] MEDS: MEROPENEM 1 GM in NS 100 ML IV SCH (05:23)
[2021-08-09] MEDS: metroNIDAZOLE 500 mg/NS 100 ML IV SCH ×2 (05:23→13:40)
[2021-08-09 06:54] LABS: ALBUMIN 1.9 g/dL (3.4-4.8); CALCIUM 8.5 mg/dL (8.4-11.0); CREATININE 0.68 mg/dL (0.55-1.30); POTASSIUM 3.8 mmol/L (3.5-5.1); TOTAL BILIRUBIN 0.3 mg/dL (0.0-1.0)
[2021-08-09 07:05] LABS: BASOPHILS % (AUTO) 0.3 % (0.0-2.0); EOSINOPHILS % (AUTO) 0.4 % (0.0-4.0); LYMPHOCYTES # (AUTO) 1.1 K/uL (1.0-5.5); MEAN CORPUSCULAR HEMOGLOBIN 22 pg (27-31); MEAN CORPUSCULAR HGB CONC 31 % (32-36); MEAN CORPUSCULAR VOLUME 71 fL (79.0-98.0); MONOCYTES # (AUTO) 1.2 K/uL (0.0-1.0); MONOCYTES % (AUTO) 10.4 % (1.7-9.3); NEUTROPHILS # (AUTO) 8.9 K/uL (1.8-7.7); NEUTROPHILS % (AUTO) 78.9 % (40.0-70.0); PLATELET COUNT (AUTO) 361 K/uL (130-430); RED BLOOD CELL COUNT(AUTO) 4.11 MIL/uL (4.2-6.2); RED CELL DISTRIBUTION WIDTH 28.4 % (9.0-15.0); WHITE BLOOD COUNT (AUTO) 11.2 K/uL (4.8-10.8)
[2021-08-09 08:00] VITALS: BP_SYST 140
[2021-08-09] MEDS ORDERED: MULTIVITAMINS TAB 1 TABLET PO SCH (09:00)
[2021-08-09] MEDS ORDERED: LACTOBACILLUS RHAMNOSUS GG 1 CAP CAPSULE PO SCH (09:00)
[2021-08-09] MEDS ORDERED: LOSARTAN POTASSIUM 25 MG TABLET PO SCH (09:00)
[2021-08-09] MEDS ORDERED: FERROUS SULFATE 300 MG/5 ML UDC PO SCH (09:00)
[2021-08-09] MEDS ORDERED: CHOLECALCIFEROL (VITAMIN D3) 2,000 UNIT TABLET PO SCH (09:00)
[2021-08-09 12:00] VITALS: BP_SYST 140
[2021-08-09] MEDS: ACETAMINOPHEN 325 MG TABLET PO PRN (12:46)
[2021-08-09 14:05] VITALS: BP_SYST 140
[2021-08-09 14:10] VITALS: BP_SYST 140
== END 2021-08-09 15:30 | disposition short-term general hospital (02) | DRG 871 ==
LOC: SED 11:36 → STU 14:15
PROVIDERS: ADMIT Internal Medicine; ATTEND Internal Medicine
DX: A41.9 Sepsis, unspecified organism (principal); K35.33 Acute appendicitis with perforation, localized peritonitis, and gangrene, with abscess; E44.0 Moderate protein-calorie malnutrition; D84.821 Immunodeficiency due to drugs; E66.01 Morbid (severe) obesity due to excess calories; E87.6 Hypokalemia; D25.9 Leiomyoma of uterus, unspecified; D50.9 Iron deficiency anemia, unspecified; R61 Generalized hyperhidrosis; Z20.822 Contact with and (suspected) exposure to COVID-19; Z79.899 Other long term (current) drug therapy; Z68.33 Body mass index [BMI] 33.0-33.9, adult
CPT/HCPCS: 36415; 71045; 76376; 80053; 83605; 84484; 85025; 85610-TC; 85651-TC; 86140; 87040; 87081; 93005; 96361; 96365; 96375; 99291; G0378; J0692; J1450; J1885; J2185; J3480; J3490; J7050; J7060; Q9964; Q9967